=== PATIENT | female | born 1950 ===

== ENCOUNTER 2022-04-21 10:14 | Observation (INO) ==
[~2022-04-21 10:14] MED LIST: Buffered Lidocaine 1% SYRIN 1 ml INTRADERM ONE; Lactated Ringers 1000 ml BAG 1,000 ML IV SCH; Naloxone 0.4 mg VIAL 0.4 mg/ml 1 ml VIAL IV PRN; Ondansetron 4 mg VIAL 2 MG/ML 2 ml VIAL IV PRN; fentaNYL 100 mcg/2 ml 50 MCG/ML VIAL IV PRN
[2022-04-21] MEDS ORDERED: Propofol 0 MG/0 ML BTL ONE (11:13)
[2022-04-21] MEDS ORDERED: Midazolam 2 mg/2 ml VIAL 1 mg/ml 2 ml VIAL (2 mg) ONE (11:14)
[2022-04-21] MEDS ORDERED: Propofol 10 MG/ML 20 ML BTL ONE (11:14)
[2022-04-21] MEDS ORDERED: fentaNYL 100 mcg/2 ml 50 MCG/ML VIAL ONE (11:14)
[2022-04-21 11:31] LABS: Hematocrit 40 % (35-47); Hemoglobin 13.2 g/dL (12.0-16.0); Mean Corpuscular HGB Conc 33 g/dL (31-36); Mean Corpuscular Hemoglobin 28 pg (27-31); Mean Corpuscular Volume 87 fL (80-97); Mean Platelet Volume 7.1 fL (7.4-10.4); Platelet Count 355 10^3/uL (150-450); Red Blood Count 4.64 10^6 /uL (3.70-4.87); Red Cell Distribution Width 14 % (10-15); White Blood Count 7.1 10^3/uL (3.5-10.8)
[2022-04-21] MEDS ORDERED: ceFAZolin 2 GM PREMIX 2 GM/50 ML BAG ONE (12:23)
[2022-04-21 12:33] LABS: Calcium 9.9 mg/dL (8.6-10.3)
[2022-04-21] MEDS ORDERED: Phenylephrine 40 mcg/mL 10mL (400mcg) SYRINGE ONE (13:30)
[2022-04-21] MEDS ORDERED: Phenylephrine IV 10 MG/ML 1 ml VIAL ONE (14:13)
[2022-04-21] MEDS ORDERED: Ondansetron ODT 4 mg TAB 4 MG TAB PO PRN (15:28)
[2022-04-21] MEDS ORDERED: Ondansetron 4 mg VIAL 2 MG/ML 2 ml VIAL IV PRN (15:28)
[2022-04-21] MEDS ORDERED: Magnesium Hydroxide LIQ 30 ML UDC PO PRN (15:28)
[2022-04-21] MEDS ORDERED: Lactulose 30 ml UDC PO PRN (15:28)
[2022-04-21] MEDS ORDERED: Morphine 2 MG/ML SYRINGE IV PRN (15:28)
[2022-04-21] MEDS ORDERED: Lactated Ringers 1000 ml BAG 1,000 ML IV SCH (16:00)
[2022-04-21] MEDS ORDERED: Fluticasone NASAL SPRAY 50MCG 16 gm SPRAY BTL INTRANASAL PRN (19:27)
[2022-04-21] MEDS ORDERED: Dextrose 50% Syringe 50 ml 25 GM/50 ML SYRINGE IV PUSH PRN (19:31)
[2022-04-21] MEDS: ceFAZolin 1 GM ADVAN 1 GM in NS 0.9% 50 ML 50 ML IVPB SCH (21:00)
[2022-04-21] MEDS: Cholecalciferol (VIT D3) 1,000 unit TAB PO SCH (21:58)
[2022-04-21] MEDS: Magnesium Hydroxide LIQ 30 ML UDC PO SCH (21:59)
[2022-04-22] MEDS: ceFAZolin 1 GM ADVAN 1 GM in NS 0.9% 50 ML 50 ML IVPB SCH ×2 (05:17→13:24)
[2022-04-22 08:13] LABS: Hematocrit 35 % (35-47); Hemoglobin 11.5 g/dL (12.0-16.0); Mean Platelet Volume 7.2 fL (7.4-10.4); Platelet Count 295 10^3/uL (150-450)
[2022-04-22 09:10] LABS: Potassium 4.2 mmol/L (3.5-5.0); eGFR CKD-EPI 97.3 (>60)
[2022-04-22] MEDS: Magnesium Hydroxide LIQ 30 ML UDC PO SCH ×2 (10:35→22:02)
[2022-04-22] MEDS: Vitamin THERAPEUTIC TAB PO SCH (10:37)
[2022-04-22] MEDS: DULoxetine DR 60 mg CAP PO SCH (10:37)
[2022-04-22] MEDS: NFT: Mirabegron 50 mg ER TAB (NF) PO SCH (10:42)
[2022-04-22] MEDS: Cholecalciferol (VIT D3) 1,000 unit TAB PO SCH (21:58)
[2022-04-23 06:44] LABS: Hematocrit 35 % (35-47); Hemoglobin 11.7 g/dL (12.0-16.0); Mean Platelet Volume 7.7 fL (7.4-10.4); Platelet Count 285 10^3/uL (150-450)
[2022-04-23] MEDS: Vitamin THERAPEUTIC TAB PO SCH (09:06)
[2022-04-23] MEDS: DULoxetine DR 60 mg CAP PO SCH (09:07)
[2022-04-23] MEDS: Magnesium Hydroxide LIQ 30 ML UDC PO SCH ×2 (09:10→21:39)
[2022-04-23] MEDS: NFT: Mirabegron 50 mg ER TAB (NF) PO SCH (09:10)
[2022-04-23] MEDS: Cholecalciferol (VIT D3) 1,000 unit TAB PO SCH (21:35)
[2022-04-24 06:58] LABS: Hematocrit 32 % (35-47); Hemoglobin 10.9 g/dL (12.0-16.0); Mean Platelet Volume 7.4 fL (7.4-10.4); Platelet Count 272 10^3/uL (150-450)
[2022-04-24] MEDS: Vitamin THERAPEUTIC TAB PO SCH (08:23)
[2022-04-24] MEDS: DULoxetine DR 60 mg CAP PO SCH (08:23)
[2022-04-24] MEDS: NFT: Mirabegron 50 mg ER TAB (NF) PO SCH (08:27)
[2022-04-24] MEDS: Magnesium Hydroxide LIQ 30 ML UDC PO SCH (08:27)
[2022-04-24 11:03] VITALS: BP 121/68
== END 2022-04-24 13:23 ==
LOC: OR 10:14 → SSU 10:14
PROVIDERS: ADMIT Orthopaedic Surgery Adult Reconstructive Orthopaedic Surgery; ATTEND Orthopaedic Surgery Adult Reconstructive Orthopaedic Surgery

== ENCOUNTER 2022-04-24 13:23 | Inpatient (IN) ==
[2022-04-24] MEDS ORDERED: Senna TAB 8.6 mg TAB PO PRN (14:12)
[2022-04-24] MEDS ORDERED: Dextrose 50% Syringe 50 ml 25 GM/50 ML SYRINGE IV PUSH PRN (14:21)
[2022-04-24] MEDS: Magnesium Hydroxide LIQ 30 ML UDC PO PRN (18:22)
[2022-04-24] MEDS: Cholecalciferol (VIT D3) 1,000 unit TAB PO SCH (20:44)
[2022-04-25 06:33] LABS: ABS Eosinophils 0.4 10^3/ul (0-0.6); ABS Monocytes 0.8 10^3/ul (0-0.8); ABS Neutrophils 6.7 10^3/ul (1.5-7.7); Eosinophil % 3.9 %; Hematocrit 35 % (35-47); Hemoglobin 11.8 g/dL (12.0-16.0); Lymphocyte % 20.3 %; Mean Corpuscular HGB Conc 34 g/dL (31-36); Mean Corpuscular Hemoglobin 29 pg (27-31); Mean Corpuscular Volume 87 fL (80-97); Mean Platelet Volume 7.2 fL (7.4-10.4); Platelet Count 410 10^3/uL (150-450); Red Blood Count 4.02 10^6 /uL (3.70-4.87); Red Cell Distribution Width 14 % (10-15)
[2022-04-25 07:22] LABS: Albumin 3.7 g/dL (3.2-5.2); Albumin/Globulin Ratio 1.5 (1-3); Calcium 9.1 mg/dL (8.6-10.3); Globulin 2.5 g/dL (2-4); Potassium 4.4 mmol/L (3.5-5.0); Total Bilirubin 0.5 mg/dL (0.2-1.0); Total Protein 6.2 g/dL (6.4-8.9); eGFR CKD-EPI 97.3 (>60)
[2022-04-25] MEDS: DULoxetine DR 60 mg CAP PO SCH (08:26)
[2022-04-25] MEDS: Vitamin THERAPEUTIC TAB PO SCH (08:26)
[2022-04-25] MEDS: PTO:Mirabegron 50 mg ER TAB (NF) PO SCH (08:30)
[2022-04-25] MEDS ORDERED: Influenza vaccine *QUAD* *2022-23* 0.5 ML SYRINGE IM ONE (09:00)
[2022-04-25] MEDS: Cholecalciferol (VIT D3) 1,000 unit TAB PO SCH (21:23)
[2022-04-26] MEDS: DULoxetine DR 60 mg CAP PO SCH (08:55)
[2022-04-26] MEDS: Vitamin THERAPEUTIC TAB PO SCH (08:55)
[2022-04-26] MEDS: PTO:Mirabegron 50 mg ER TAB (NF) PO SCH (09:00)
[2022-04-26] MEDS: Cholecalciferol (VIT D3) 1,000 unit TAB PO SCH (21:15)
[2022-04-27] MEDS: Vitamin THERAPEUTIC TAB PO SCH (08:29)
[2022-04-27] MEDS: DULoxetine DR 60 mg CAP PO SCH (08:30)
[2022-04-27] MEDS: PTO:Mirabegron 50 mg ER TAB (NF) PO SCH (08:31)
[2022-04-27] MEDS: Cholecalciferol (VIT D3) 1,000 unit TAB PO SCH (21:15)
[2022-04-28] MEDS: PTO:Mirabegron 50 mg ER TAB (NF) PO SCH (08:06)
[2022-04-28] MEDS: DULoxetine DR 60 mg CAP PO SCH (08:06)
[2022-04-28] MEDS: Vitamin THERAPEUTIC TAB PO SCH (08:06)
[2022-04-28] MEDS: Magnesium Hydroxide LIQ 30 ML UDC PO PRN (08:15)
[2022-04-28] MEDS: Cholecalciferol (VIT D3) 1,000 unit TAB PO SCH (19:37)
[2022-04-29] MEDS: DULoxetine DR 60 mg CAP PO SCH (09:43)
[2022-04-29] MEDS: Vitamin THERAPEUTIC TAB PO SCH (09:43)
[2022-04-29] MEDS: PTO:Mirabegron 50 mg ER TAB (NF) PO SCH (09:43)
[2022-04-29] MEDS: Cholecalciferol (VIT D3) 1,000 unit TAB PO SCH (20:39)
[2022-04-30] MEDS: PTO:Mirabegron 50 mg ER TAB (NF) PO SCH (08:41)
[2022-04-30] MEDS: Vitamin THERAPEUTIC TAB PO SCH (08:41)
[2022-04-30] MEDS: DULoxetine DR 60 mg CAP PO SCH (08:41)
[2022-04-30] MEDS: Magnesium Hydroxide LIQ 30 ML UDC PO PRN (09:17)
[2022-04-30] MEDS: Polyethylene Glycol 3350 17 GM PACKET PO SCH (11:19)
[2022-04-30] MEDS: Senna TAB 8.6 mg TAB PO SCH (20:09)
[2022-04-30] MEDS: Cholecalciferol (VIT D3) 1,000 unit TAB PO SCH (20:09)
[2022-05-01] MEDS: DULoxetine DR 60 mg CAP PO SCH (09:34)
[2022-05-01] MEDS: PTO:Mirabegron 50 mg ER TAB (NF) PO SCH (09:34)
[2022-05-01] MEDS: Polyethylene Glycol 3350 17 GM PACKET PO SCH (09:35)
[2022-05-01] MEDS: Vitamin THERAPEUTIC TAB PO SCH (10:08)
[2022-05-01] MEDS: Senna TAB 8.6 mg TAB PO SCH (20:44)
[2022-05-01] MEDS: Cholecalciferol (VIT D3) 1,000 unit TAB PO SCH (20:44)
[2022-05-02 07:17] LABS: ABS Basophils 0.1 10^3/ul (0-0.2); ABS Eosinophils 0.3 10^3/ul (0-0.6); ABS Lymphocytes 2.3 10^3/ul (1.0-4.8); ABS Monocytes 0.6 10^3/ul (0-0.8); ABS Neutrophils 4.8 10^3/ul (1.5-7.7); Hematocrit 34 % (35-47); Hemoglobin 11.2 g/dL (12.0-16.0); Lymphocyte % 28.7 %; Mean Corpuscular HGB Conc 33 g/dL (31-36); Mean Corpuscular Hemoglobin 29 pg (27-31); Mean Corpuscular Volume 87 fL (80-97); Mean Platelet Volume 6.7 fL (7.4-10.4); Platelet Count 603 10^3/uL (150-450); Red Blood Count 3.93 10^6 /uL (3.70-4.87); Red Cell Distribution Width 13 % (10-15); White Blood Count 8.1 10^3/uL (3.5-10.8)
[2022-05-02 07:40] LABS: Albumin 3.7 g/dL (3.2-5.2); Albumin/Globulin Ratio 1.8 (1-3); Calcium 9.2 mg/dL (8.6-10.3); Globulin 2.1 g/dL (2-4); Potassium 4.4 mmol/L (3.5-5.0); Total Bilirubin 0.3 mg/dL (0.2-1.0); Total Protein 5.8 g/dL (6.4-8.9); eGFR CKD-EPI 96.9 (>60)
[2022-05-02] MEDS: Polyethylene Glycol 3350 17 GM PACKET PO SCH (08:37)
[2022-05-02] MEDS: Vitamin THERAPEUTIC TAB PO SCH (08:37)
[2022-05-02] MEDS: PTO:Mirabegron 50 mg ER TAB (NF) PO SCH (08:37)
[2022-05-02] MEDS: DULoxetine DR 60 mg CAP PO SCH (08:37)
[2022-05-02] MEDS: Cholecalciferol (VIT D3) 1,000 unit TAB PO SCH (20:44)
[2022-05-02] MEDS: Senna TAB 8.6 mg TAB PO SCH (20:44)
[2022-05-03 05:34] VITALS: BP 111/68
[2022-05-03] MEDS: Polyethylene Glycol 3350 17 GM PACKET PO SCH (08:53)
[2022-05-03] MEDS: DULoxetine DR 60 mg CAP PO SCH (08:53)
[2022-05-03] MEDS: Vitamin THERAPEUTIC TAB PO SCH (08:53)
[2022-05-03] MEDS: PTO:Mirabegron 50 mg ER TAB (NF) PO SCH (08:53)
== END 2022-05-03 16:17 | disposition home or self-care (01) | DRG 561 ==
LOC: PMRU 13:23
PROVIDERS: ADMIT Physical Medicine & Rehabilitation; ATTEND Physical Medicine & Rehabilitation